=== PATIENT | female | born 1970 | race Caucasian/White ===

== ENCOUNTER 2021-11-16 20:28 | Emergency (ER) | payer MEDICAID, OTHER ==
[2021-11-16] MEDS ORDERED: Acetaminophen/oxyCODONE 325-5 MG Tab PO ONE (20:29)
[2021-11-16] MEDS ORDERED: Acetaminophen/oxyCODONE 325-5 MG Tab PO STA (21:18)
[2021-11-16] MEDS ORDERED: cefTRIAXone 1 GM Vial IM ONE (21:44)
== END 2021-11-16 22:25 | disposition home or self-care (01) ==
LOC: FB.ED 20:28
DX: J36 Peritonsillar abscess (principal); I10 Essential (primary) hypertension; F17.210 Nicotine dependence, cigarettes, uncomplicated; Z88.0 Allergy status to penicillin; Z79.899 Other long term (current) drug therapy; Z79.82 Long term (current) use of aspirin
CPT/HCPCS: 87651; 96372; 99283; A9270; J0696; 99282

== ENCOUNTER 2022-06-23 14:17 | Emergency (ER) | payer MEDICAID, OTHER ==
[2022-06-23] MEDS ORDERED: Sodium Chloride 0.9% 10 ML Syringe FLUSH PRN (14:31)
[2022-06-23] MEDS ORDERED: amLODIPine 10 MG Tab PO STA (14:52)
[2022-06-23] MEDS ORDERED: Aspirin 81 MG Tab.Chew PO ONE (14:52)
[2022-06-23 14:57] LABS: ESTIMATED GFR 78 mL/min (>60)
== END 2022-06-23 15:54 | disposition home or self-care (01) ==
LOC: FB.ED 14:17
DX: R07.9 Chest pain, unspecified (principal); I10 Essential (primary) hypertension; Z86.73 Personal history of transient ischemic attack (TIA), and cerebral infarction without residual deficits; Z88.0 Allergy status to penicillin; Z79.82 Long term (current) use of aspirin; Z79.02 Long term (current) use of antithrombotics/antiplatelets
CPT/HCPCS: 36415; 71045; 80053; 83880; 84484; 85025; 85379; 85610; 85730; 93005; 99285; A9270-GY